=== PATIENT | female | born 1985 | race American Indian/Alaskan Native ===

== ENCOUNTER 2017-04-17 06:50 | Emergency (ER) | payer OTHER ==
[2017-04-17 06:58] VITALS: BP 132/91; PULSE 111; RESP 18; O2SAT 100
--- NOTE | 2017-04-17 07:38 | ED PDOC ---
Arrival/HPI - General Chief Complaint: Abdominal Pain Time Seen by Provider: 04/17/17 07:18 - History of Present Illness Narrative History of Present Illness (Text): 04/17/17 Orders were placed based on triage but patient eloped prior to being evaluated. Past Medical History - Provider Review Nursing Documentation Reviewed: Yes - Psychiatric Hx Substance Use: Yes - Suicidal Assessment Feels Threatened In Home Enviroment: No Family/Social History - Physician Review Nursing Documentation Reviewed: Yes Family/Social History: Unknown Family HX Smoking Status: Heavy Smoker > 10 Cigarettes Daily Hx Alcohol Use: Yes Frequency of alcohol use: Few days per week Hx Substance Use: Yes Allergies/Home Meds Allergies/Adverse Reactions: Allergies No Known Allergies Allergy (Unverified 04/29/13 20:53) Home Medications: Home Meds Medication Instructions Recorded Confirmed No Known Home Med [No Known Home 04/29/13 04/17/17 Med] Review of Systems - Review of Systems Systems not reviewed;Unavailable: Other (eloped) Physical Exam Vital Signs Reviewed: Yes Vital Signs Pulse Resp BP Pulse Ox 04/17/17 06:58 111 H 18 132/91 H 100 Blood Pressure: Normal Pulse: Regular Respiratory Rate: Normal Mental Status: Positive for: Alert and Oriented X 3 Medical Decision Making ED Course and Treatment: 04/17/17 07:30 Orders were placed based on triage history, but when going to evaluate patient, she was gone. 04/17/17 07:30 Patient left prior to a medical screening exam. Patient signed in to be seen in the emergency department, was triaged, and left prior to being evaluated. - PA / RIBBON WINDER / Resident Statement MD/DO has reviewed & agrees with the documentation as recorded. - Scribe Statement The provider has reviewed the documentation as recorded by the Martin Granados Provider Scribe Attestation: All medical record entries made by the Martin were at my direction and personally dictated by me. I have reviewed the chart and agree that the record accurately reflects my personal performance of the history, physical exam, medical decision making, and the department course for this patient. I have also personally directed, reviewed, and agree with the discharge instructions and disposition. Disposition/Present on Arrival - Present on Arrival Any Indicators Present on Arrival: No History of DVT/PE: No History of Uncontrolled Diabetes: No Urinary Catheter: No History of Decub. Ulcer: No History Surgical Site Infection Following: None - Disposition Have Diagnosis and Disposition been Completed?: Yes Diagnosis: Patient left before evaluation by physician Disposition: LEFT W/O TREATMENT - ER ONLY Disposition Time: 07:30 Patient Plan: Other Condition: UNKNOWN Discharge Instructions (ExitCare): Leaving Against Medical Advice Referrals: Zion Ferrera, [Primary Care Provider] - Follow up with primary Forms: [employer] (Thai)
== END 2017-04-17 07:30 | disposition left against medical advice (07) ==
LOC: ED 06:50
DX: Z02.89 Encounter for other administrative examinations (principal); R10.9 Unspecified abdominal pain